=== PATIENT | male | born 1945 | race Caucasian/White ===

== ENCOUNTER 2017-08-14 06:29 | Day surgery (SDC) | payer MEDICARE ==
[~2017-08-14] VITALS: Ht 172.7 cm; Wt 90.5 kg
[2017-08-14] MEDS ORDERED: IOHEXOL 180 MG/ML 20 ML VIAL (for RAD DIAG) IT ONE (06:30)
[2017-08-14 06:56] VITALS: BP 128/76; PULSE 75; RESP 18; TEMP 97.9; O2SAT 96
[2017-08-14] MEDS ORDERED: DIAZEPAM 5 MG TAB PO SCH (07:30)
[2017-08-14] MEDS ORDERED: LACTATED RINGER'S 1000 ML INJ 1,000 ML IV SCH (07:30)
[2017-08-14 07:44] LABS: AUTOMATED NEUTROPHIL # 3.5 TH/MM3 (1.8-7.7); BASOPHIL # 0.1 TH/MM3 (0-0.2); BASOPHIL % 1.1 % (0.0-2.0); EOSINOPHIL # 0.3 TH/MM3 (0-0.4); EOSINOPHIL % 4.9 % (0.0-4.0); HEMATOCRIT 42.3 % (39.0-51.0); HEMOGLOBIN 14.1 GM/DL (13.0-17.0); LYMPH % 26.6 % (9.0-44.0); LYMPHOCYTE # 1.6 TH/MM3 (1.0-4.8); MEAN CELL VOLUME 99.3 FL (80.0-100.0); MEAN CORPUSCULAR HEMOGLOBIN 33.1 PG (27.0-34.0); MEAN CORPUSCULAR HGB CONC 33.3 % (32.0-36.0); MEAN PLATELET VOLUME 8.6 FL (7.0-11.0); MONO % 10.2 % (0.0-8.0); MONOCYTE # 0.6 TH/MM3 (0-0.9); NEUT % 57.2 % (16.0-70.0); PLATELET COUNT 216 TH/MM3 (150-450); RED BLOOD COUNT 4.26 MIL/MM3 (4.50-5.90); RED CELL DISTRIBUTION WIDTH 14.2 % (11.6-17.2)
[2017-08-14 07:58] LABS: PROTHROMBIN TIME - PATIENT 9.9 SEC (9.8-11.6)
[2017-08-14 07:59] LABS: BICARBONATE 23.6 MEQ/L (21.0-32.0); CREATININE 1.8 MG/DL (0.60-1.30)
--- NOTE | 2017-08-14 09:16 | PD.RAD ---
Post Procedure Progress Note Pre Procedure Diagnosis: (1) Neurogenic claudication Post Procedure Diagnosis: (1) Neurogenic claudication Procedure Date: Aug 14, 2017 Supervising Radiologist: Cristofer Odonnell Estimated blood loss: none Anesthesia: Local Plan of Activity Patient to Unit: [facility]OPU Patient Condition: Good Additional Comments: LP with myelogram completed. Full dictated report to follow See PACS Report for procedural detail/treatment Cristofer Odonnell MD Aug 14, 2017 09:16
[2017-08-14 10:05] VITALS: BP 116/73; PULSE 60; RESP 18; TEMP 97.8; O2SAT 96
--- NOTE | 2017-08-14 11:41 | RADRPT ---
EXAM DATE: 08/14/2017 10:03 AM EDT AGE/SEX: 71 years / Male INDICATIONS: Degenerative disc disease CLINICAL DATA: This is the patient's initial encounter. Patient reports that signs and symptoms have been present for 1 day and indicates a pain score of 3/10. MEDICAL/SURGICAL HISTORY: None. None. RADIATION DOSE: 41.65 CTDI (mGy) COMPARISON: No prior exams available for comparison. TECHNIQUE: Contiguous axial images were acquired with a multirow detector CT scanner without contras t. Multiplanar reconstructions in the sagittal and coronal plane were also performed. Using automate d exposure control and adjustment of the mA and/or kV according to patient size, radiation dose was k ept as low as reasonably achievable to obtain optimal diagnostic quality images. FINDINGS: Vertebrae: Normal vertebral body height. Alignment: A mild grade 1 anterolisthesis of L3 on L4.. T12-L1: The thecal sac has a normal diameter. No evidence of disc bulge or protrusion. The neural foramina are patent bilaterally. L1-L2: The thecal sac has a normal diameter. No evidence of disc bulge or protrusion. The neural f oramina are patent bilaterally. L2-L3: There is disc space narrowing and vacuum disc phenomena with anterior osteophyte production. There is limited contrast at this area limiting the evaluation somewhat. The central canal appears pa tent measuring 10 mm. Lateral recesses are patent. Neural foramina are patent. Moderate ligament flav um hypertrophy of the facets. L3-L4: There is disc space narrowing and vacuum disc phenomena. Limited contrast at this area limits the evaluation somewhat. There is a suspected left posterior lateral disc protrusion that effaces th e left lateral recess and narrows the left neural foramen. There is narrowing of the central canal in a medial to lateral dimension. Right lateral recess and right neural foramen appear patent. Prominen t ligament of flavum hypertrophy and bony hypertrophy of the facets bilaterally but more pronounced o n the left. L4-L5: Contrast opacifies the thecal space well at this level. At the mid L4 vertebral body level is where the contrast reaches with good opacification. Cephalad to this there is limited opacification. There is disc space narrowing and vacuum disc phenomena. A broad-based disc bulge in combination wit h prominent ligamentum flavum hypertrophy and bony hypertrophy of the facets causes effacement of the left lateral recess and narrowing of the right lateral recess. There is narrowing of the central can al with the intrathecal space measuring 6 mm in the midline. Mild narrowing of the neural foramina bi laterally without overt impingement.. L5-S1: Disc space narrowing and vacuum disc phenomena with broad-based disc osteophyte complex. Moder ate ligament flavum hypertrophy of the facets. There is narrowing of the lateral recesses bilaterally but more pronounced on the left. Central canal remains patent. Narrowing of the neural foramina with out overt impingement. CONCLUSION: 1. Diffuse multilevel degenerative changes most pronounced at L3-L4 and L4-L5. Contrast is limited a t L3-L4. There is felt to be a left posterior lateral disc protrusion that effaces the left lateral r ecess and narrows the central canal and left neural foramen. At L4-L5 1 combination of a broad-based disc bulge and facet arthropathy changes causes less pronounced narrowing of the central canal. Electronically signed by: Adan Tsai MD 08/14/2017 11:39 AM EDT
--- NOTE | 2017-08-14 16:07 | RADRPT ---
EXAM DATE: 08/14/2017 9:38 AM EDT AGE/SEX: 71 years / Male INDICATIONS: Patient presents with lower back pain in need of lumbar myelogram for evaluation. CLINICAL DATA: This is the patient's initial encounter. Patient reports that signs and symptoms have been present for > 1 year and indicates a pain score of 0/10. MEDICAL/SURGICAL HISTORY: Hypertension. Osteoarthritis. Anxiety. Pacemaker. COMPARISON: [facility] – [place], CT LUMBAR SPINE W/O CONTRAST, 08/14/2017. . FLUORO TIME (min): 2.3 IMAGE SERIES: 6 ACCESS SITE: L4-5 LUMBAR PUNCTURE TIME: 0904 hours CONTRAST (cc): 15cc Omnipaque (iohexol) 180 . . PROCEDURE: 1. Fluoroscopic guided lumbar puncture. 2. Lumbar myelogram. The risks, benefits and alternatives to the procedure were explained and verbal and written consent w as obtained. The site was prepped in sterile fashion. Full sterile technique was used, including ca p, mask, sterile gloves and gown and a large sterile sheet. Hand hygiene and 2% chlorhexidine and/or betadine/alcohol prep was utilized per protocol for cutaneous antisepsis. The skin and subcutaneous tissues were infiltrated with local anesthetic solution. With fluoroscopic guidance the lumbar thecal sac was punctured at level above and a diagnostic quanti ty of contrast is present in the subarachnoid space. Radiographs were obtained of the lumbar spine. The patient tolerated procedure well and there were no complications. CT scan is to be performed for further evaluation. CONCLUSION: 1. Uncomplicated lumbar myelogram as above. CT scan is to be performed for further evaluation. Electronically signed by: Cristofer Odonnell MD 08/14/2017 3:50 PM EDT
== END 2017-08-14 13:20 | disposition home or self-care (01) ==
LOC: HROP 06:29 → HRIP 06:37 → EDSEX 07:00 → HROP 13:20
PROVIDERS: ATTEND Neurological Surgery
DX: M51.26 Other intervertebral disc displacement, lumbar region (principal); I10 Essential (primary) hypertension; Z95.0 Presence of cardiac pacemaker
CPT/HCPCS: 62304; 72131; 80048; 85025; 85610; 85730; J7120; Q9965

== ENCOUNTER 2017-09-11 08:30 | Inpatient (IN) ==
[~2017-09-11 08:30] MED LIST: Bupivacaine/Epinephrine 0.5% Inj 50 ML Vial ONE; CEFAZOLIN IV.SIG ONE; Gelatin Size 100 Topical Foam ONE; Heparin - SQ 10,000 UNITS/ML Vial SQ ONE
[2017-09-11] MEDS ORDERED: Normosol-R pH 7.4 Inj 3,000 ML IV.CONT ONE (12:00)
[2017-09-11] MEDS ORDERED: Sodium Chlor 0.9% Inj 500 ML IV.SIG ONE (12:00)
[2017-09-11] MEDS ORDERED: Glycopyrrolate Inj 1 MG/5 ML Syringe IV.PUSH ONE (12:00)
[2017-09-11] MEDS ORDERED: Phenylephrine/NS 1000 MCG/10ML Syringe IV.PUSH ONE (12:00)
[2017-09-11] MEDS ORDERED: Lidocaine PF 1% Inj 5 ML Syringe INFILTRATN ONE (12:00)
[2017-09-11] MEDS ORDERED: Chlorhexidine Gluconate 2% 1 Pack (2 Cloths) TOPICAL SCH (14:00)
[2017-09-11] MEDS ORDERED: Sodium Chlor 0.9% Inj 500 ML IV.SIG SCH (14:00)
[2017-09-11] MEDS ORDERED: Metoprolol Tartrate 25 MG Tablet PO SCH (14:00)
[2017-09-11] MEDS ORDERED: ceFAZolin 2 GM IV; once IV.SIG SCH (14:00)
[2017-09-11] MEDS ORDERED: Ketamine Inj 50 MG/5 ML Syringe IV.PUSH ONE (14:57)
[2017-09-11] MEDS ORDERED: Propofol Inj 500 MG/50 ML Vial ONE (14:57)
[2017-09-11] MEDS ORDERED: Dexmedetomidine Inj 200 MCG/2 ML Vial ONE (14:57)
[2017-09-11] MEDS ORDERED: Bisacodyl 10 MG Supp RECTAL PRN (16:01)
[2017-09-11] MEDS ORDERED: Acetaminophen 325 MG Tablet PO PRN (16:01)
[2017-09-11] MEDS ORDERED: HYDROmorphone PCA Inj 6 MG/30 ML PCA.VIAL PCA PRN (16:05)
[2017-09-11] MEDS ORDERED: Naloxone Inj 0.4 MG/ML Vial IV.PUSH PRN (16:05)
[2017-09-11] MEDS ORDERED: Sugammadex Inj 200 MG/2 ML Vial IV.PUSH ONE (16:27)
[2017-09-11] MEDS ORDERED: fentaNYL Citrate Inj 100 MCG/2 ML Ampul ONE (18:38)
[2017-09-12] MEDS ORDERED: Phenylephrine Inj 40 MG in Dextrose 5% in Water Inj 496 ML IV.CONT PRN ×2 (00:50)
[2017-09-12 01:18] LABS: Baso % (Auto) 0.1 % (0.0-2.0); Eos % (Auto) 0.1 % (0.0-4.0); Hematocrit 30.9 % (39.0-51.0); Hemoglobin 10.2 gm/dL (13.0-17.0); Lymph # (Auto) 0.7 th/mm3 (1.0-4.8); Lymph % (Auto) 4.3 % (9.0-44.0); Mean Corpuscular HGB Conc 32.9 % (32.0-36.0); Mean Corpuscular Volume 100.3 fL (80.0-100.0); Mean Platelet Volume 8.4 fL (7.0-11.0); Mono # (Auto) 1.1 th/mm3 (0.0-0.9); Mono % (Auto) 6.7 % (0.0-8.0); Neut # (Auto) 14.1 th/mm3 (1.8-7.7); Neut % (Auto) 88.8 % (16.0-70.0); Platelet Count 150 th/mm3 (150-450); Red Blood Count 3.08 mil/mm3 (4.50-5.90); Red Cell Distribution Width 13.6 % (11.6-17.2); White Blood Count 15.9 th/mm3 (4.0-11.0)
[2017-09-12] MEDS ORDERED: *morphine SULFATE 4 MG/ML PERIprocedure ONLY ONE (01:25)
[2017-09-12] MEDS ORDERED: *Meperidine Inj 25 MG/ML Vial PERIprocedural Use ONLY ONE (01:30)
[2017-09-12 01:38] LABS: Calcium 7.3 mg/dL (8.5-10.1); Carbon Dioxide 17.4 meq/L (21.0-32.0); Potassium 4.5 meq/L (3.5-5.1)
[2017-09-12] MEDS: Sod Chloride 0.9% Inj 1,000 ML IV.CONT SCH ×4 (02:28→17:29)
[2017-09-12] MEDS: ceFAZolin 2 GM Premix Inj 2 GM/50 ML PIGGYBACK IV.SIG SCH ×3 (02:29→09:00)
[2017-09-12] MEDS ORDERED: Albumin Human 5% Inj 500 ML IV.SIG STA (02:34)
[2017-09-12] MEDS ORDERED: Calcium Gluconate Inj 3 GM in Sodium Chlor 0.9% Inj 100 ML IV.SIG ONE (02:47)
[2017-09-12 02:51] LABS: ABG Base Excess -10.3 mmol/L (-2-2); ABG PCO2 32 mmHg (38-42); ABG PO2 134 mmHg (61-120)
--- NOTE | 2017-09-12 02:58 | P.CONCC ---
History of Present Illness Service: Critical care medicine Consult date: 09/12/17 Requesting Physician: Abilio Ortega Reason for Consult: management of hypotension Primary Care Provider: Dayton Alamo MD Family Provider: Dayton Alamo MD Chief Complaint: hypotension History of Present Illness: 71yM POD 0 s/p elective lumbar spine surgery by Dr. Ortega. intra-operatively it was recorded that the patient had an EBL of 300mL, but received 750mL of cell- saver. post-operatively patient was hypotensive requiring phenylephrine infusion. critical care consult was placed due to hypotension. on my evaluation , patient is somnolent and still arousing from anesthesia. patient is on 200 mcg /min of phenylephrine and has map of 61 mmHg. patient's extremities are cool and poorly perfused. stat abg 7.29/31/134/-10.3. hgb 10.9. appears globally hypovolemic. stat lactate pending. ROS otherwise negative but limited by arousal from anesthesia. Review of Systems All other systems reviewed negative except as stated in HPI, unobtainable due to mental status PMFSH - History History Provided By: Patient, Medical Record - Medical History Medical History: Medical History (Last Reviewed 09/11/17 @ 14:19 by Ashley Ledesma) DDD (degenerative disc disease) GERD (gastroesophageal reflux disease) Gout H/O meningitis High cholesterol Hypertension Pacemaker Rheumatoid arthritis Thigh contusion Wears glasses - Surgical History Surgical History: Surgical History (Last Reviewed 09/11/17 @ 14:19 by Ashley Ledesma) History of arthroplasty of left knee History of tonsillectomy and adenoidectomy - Tobacco History Second Hand Smoke Exposure: No Tobacco Use In Past 30 Days: No Smoking Status: Former smoker Tobacco Type: Cigarettes - Alcohol History How Often Do You Have a Drink Containing Alcohol: Never - Substance Use History Substance History: No History of Abuse - Travel History Recent Travel in the [place] Within the Last 8 Weeks: No Recent Travel Out of the Country Within the Last 8 Weeks: No Medications and Allergies Active Medications: Active Medications Acetaminophen (Tylenol) 650 mg PO Q4H PRN PRN Reason: TEMPERATURE > 101.5 F Al Hydroxide/Mg Hydroxide (Milk Of Magnesia Liq) 30 ml PO Q12H PRN PRN Reason: Mild Constipation Allopurinol (Zyloprim) 300 mg PO DAILY [facility] Atorvastatin Calcium (Lipitor) 20 mg PO DAILY [facility] Bisacodyl (Dulcolax Supp) 10 mg RECTAL DAILY PRN PRN Reason: SEVERE CONSITIPATION Chlorhexidine Gluconate (Chlorhexidine 2% Cloth) 3 pack TOPICAL HAND TENNIS [employer]ALL [employer] [facility] Stop: 09/14/17 13:54 Famotidine (Pepcid) 20 mg PO BID [facility] Lactated Ringer's (Lr 1000 Ml Inj) 1,000 mls @ 30 mls/hr IV.SIG .Q24H [facility] Stop: 09/14/17 13:54 Sodium Chloride (Ns Inj) 500 mls @ 30 mls/hr IV.SIG .Q10H [facility] Stop: 09/14/17 13:54 Cefazolin Sodium/Dextrose (Ancef 2 Gm Premix Inj) 2 gm in 50 mls @ 100 mls/hr IV.SIG Q8H [facility] Stop: 09/12/17 09:29 Last Admin: 09/12/17 02:29 Dose: Not Given Sodium Chloride (Ns Inj) 1,000 mls @ 100 mls/hr IV.CONT .Q10H [facility] Last Admin: 09/12/17 02:28 Dose: 100 mls/hr Hydromorphone/Sodium Chloride (Dilaudid Equine Intern Inj) 6 mg in 30 mls @ 0 mls/hr [employer] UNSCH PRN PRN Reason: 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 Phenylephrine HCl 40 mg/ (Dextrose) 500 mls @ 30 mls/hr IV.CONT TITRATE PRN; Protocol PRN Reason: Per Protocol Albumin Human (Alburx 5% Inj) 500 mls @ 250 mls/hr IV.SIG STAT STA Stop: 09/12/17 04:33 Lactated Ringer's (Lr 1000 Ml Inj) 1,000 mls @ 0 mls/hr IV.SIG BOLUS ONE Stop: 09/12/17 02:48 Calcium Gluconate 3 gm/ Sodium (Chloride) 130 mls @ 120 mls/hr IV.SIG ONCE ONE Stop: 09/12/17 03:51 Lactulose (Lactulose Liq) 30 ml PO DAILY PRN PRN Reason: SEVERE CONSITIPATION Miscellaneous Information (Misc Nursing Information) 1 each OTHER UNSCH PRN PRN Reason: SEE LABEL COMMENTS Stop: 09/13/17 01:33 Multivitamins (Theragran) 1 tab PO DAILY [facility] Naloxone HCl (Narcan Inj) 0.4 mg IV.PUSH PRN PRN PRN Reason: SEE LABEL COMMENTS Povidone Iodine (Betadine 5% Antisepsis Kit) 1 applicatio EACH NARE HAND [employer] [facility] Stop: 09/14/17 13:54 Senna/Docusate Sodium (Radha-Colace) 1 tab PO BID [facility] Sennosides (Senokot) 17.2 mg PO Q12H PRN PRN Reason: Moderate Constipation Sertraline HCl (Zoloft) 50 mg PO [facility] Terbutaline Sulfate (Brethine Inj) 1 mg SQ UNSCH PRN PRN Reason: For Extravasation Allergies Allergy/AdvReac Type Severity Reaction Status Date / Time No Known Allergies Allergy Unverified 09/11/17 14:20 Home Medications Medication Instructions Recorded Confirmed Type allopurinol 300 mg PO DAILY 09/03/17 09/11/17 History aspirin [Aspir-81] 81 mg PO DAILY 09/03/17 09/11/17 History enalapril maleate [Vasotec] 10 mg PO DAILY 09/03/17 09/11/17 History ibuprofen 800 mg PO TID PRN 09/03/17 09/11/17 History multivitamin 1 tab PO DAILY 09/03/17 09/11/17 History ranitidine HCl [Zantac] 150 mg PO DAILY 09/03/17 09/11/17 History rosuvastatin [Crestor] 10 mg PO DAILY 09/03/17 09/11/17 History sertraline [Zoloft] 50 mg PO HS 09/03/17 09/11/17 History triamterene-hydrochlorothiazid 1 tab PO DAILY 09/03/17 09/11/17 History Physical Exam Vital signs: Vital Signs 09/11/17 14:24 09/12/17 00:29 09/12/17 00:30 Temperature 36.8 C 36.3 C L Pulse Rate 76 74 Respiratory Rate 16 12 Blood Pressure 145/69 H 92/54 L Pulse Oximetry 97 100 96 09/12/17 00:40 09/12/17 00:45 09/12/17 01:00 Temperature 36.3 C L 36.3 C L Pulse Rate 74 74 64 Respiratory Rate 12 12 Blood Pressure 92/54 L 75/41 L 116/51 L Pulse Oximetry 100 100 09/12/17 01:15 09/12/17 01:30 09/12/17 01:40 Temperature 36.3 C L 36.3 C L 36.5 C Pulse Rate 63 62 60 Respiratory Rate 12 12 12 Blood Pressure 117/57 L 142/57 H 94/45 L Pulse Oximetry 100 100 100 Intake & Output 09/11/17 09/11/17 09/12/17 06:59 18:59 06:59 Output Total 800 / 800 Balance -800 / -800 Weight 91.8 kg Output: Estimated Blood Loss 300 / 300 Urine Amount (Catheter) 500 / 500 Indwelling Urethral Catheter 500 / 500 Other: Weight On Admission 91.8 kg Narrative: gen: elderly male, lying in bed, arousing from anesthesia, somnolent but arousable. does appear acutely ill. heent: perrl. sclerae very pale. neck: no jvd. trachea midline. chest: equal chest rise. nc o2. cv: normal rate, regular rhythm. appears sinus by tele. hypotensive. phenylephrine infusion at 200mcg/min. abd: soft, nontender, nondistended, no guarding. back: midline lumbar incision c/d/i. CHARLENE with ~30mL sanguinous output. neuro: RASS -1/-2. moves all extremities. follows commands. no focal deficits. - Urinary Catheter Management Indwelling Urethral Catheter Cath placed during this visit: yes Reason for continuing: Hourly intake/output Insertion date: 09/11/17 Insertion time: 16:03 Assessment and Plan - Assessment and Plan Plan: Assessment: 71yM POD 0 s/p spine surgery, course complicated by hypovolemic shock requiring vasopressors. Critically ill with end-organ damage/dysfunction secondary to new shock. appears globally under-resuscitated. Active Problems: Hypovolemic Shock anemia secondary to acute blood loss severe metabolic acidosis Hypocalcemia Acute kidney injury Plan: - admit to ICU - continue to wean phenylephrine for goal map > 65 mmHg - stat 1L LR bolus, 500cc 5% albumin bolus - mivf @ 100cc/hr - trend H&H - send stat coags, fibrinogen, lactate - may require blood tranfusion - close uop monitoring - frequent neuro checks - daily bmp and monitor Cr. - RODERICK secondary to hypovolemia. Critical care time: 49 minutes, exclusive of separately billable procedures.
[2017-09-12 03:07] LABS: Total Protein 4.3 g/dL (6.4-8.2)
[2017-09-12] MEDS ORDERED: Calcium Chloride Inj 2 GM in Sodium Chlor 0.9% Inj 100 ML IV.SIG ONE (03:45)
[2017-09-12 04:13] LABS: ABG Base Excess -8.3 mmol/L (-2-2); ABG PCO2 39 mmHg (38-42); ABG PO2 130 mmHg (61-120)
[2017-09-12 04:34] LABS: Activated Partial Thrombo Time 22.3 sec (24.3-30.1); INR 1.2 Ratio; Prothrombin Time 11.7 sec (9.8-11.6)
[2017-09-12 04:57] LABS: Hematocrit 25.9 % (39.0-51.0); Hemoglobin 8.6 gm/dL (13.0-17.0)
[2017-09-12] MEDS: Allopurinol 300 MG Tablet PO SCH (09:01)
[2017-09-12] MEDS: Senna/Docusate Sodium 8.6/50 MG Tablet PO SCH ×3 (09:09→21:10)
[2017-09-12] MEDS: Famotidine 20 MG Tablet PO SCH ×2 (09:11→21:10)
--- NOTE | 2017-09-12 09:12 | XR ---
EXAM DATE: 09/12/2017 9:02 AM EDT AGE/SEX: 71 years / Male INDICATIONS: Lumbar fusion, L3-4, 4-5, L5-S1. CLINICAL DATA: This is the patient's initial encounter. Patient reports that signs and symptoms have been present for 1 day and indicates a pain score of Nonresponsive. MEDICAL/SURGICAL HISTORY: Non-responsive. Non-responsive. COMPARISON: [facility] [place]ELO[place] - LUMBAR SPINE, 08/14/2017. . FINDINGS: Transpedicular screws are seen at the L3, L4, L5 and S1 levels with stabilization plate devices seen at the disc levels. There does appear to be a posterior drain present. The hardware is well placed. CONCLUSION: Good placement of surgical hardware from the L3-S1 levels. Electronically signed by: Albert Leong MD 09/12/2017 9:11 AM EDT
[2017-09-12] MEDS: Sertraline 50 MG Tablet PO SCH ×2 (12:42→21:10)
[2017-09-13] MEDS: Sod Chloride 0.9% Inj 1,000 ML IV.CONT SCH ×4 (00:10→22:13)
[2017-09-13 07:38] LABS: Calcium 8.2 mg/dL (8.5-10.1); Potassium 3.4 meq/L (3.5-5.1)
--- NOTE | 2017-09-13 10:13 | P.PNCC ---
Subjective Subjective Remarks/Hospital Course: 71yM POD 0 s/p elective lumbar spine surgery by Dr. Oretga. intra-operatively it was recorded that the patient had an EBL of 300mL, but received 750mL of cell- saver. post-operatively patient was hypotensive requiring phenylephrine infusion. critical care consult was placed due to hypotension. on my evaluation , patient is somnolent and still arousing from anesthesia. patient is on 200 mcg /min of phenylephrine and has map of 61 mmHg. patient's extremities are cool and poorly perfused. stat abg 7.29/31/134/-10.3. hgb 10.9. appears globally hypovolemic. stat lactate pending. ROS otherwise negative but limited by arousal from anesthesia. 09/13: Lactic acidosis is resolved, renal function improving. A major issue appears to be his idiosyncratic reactions to analgesics. He wiggles his toes and follows commands. Objective Vital Signs / I&O: Vital Signs 09/12/17 12:00 09/12/17 12:43 09/12/17 16:00 Temperature 98.6 F 98.1 F Pulse Rate 72 72 Respiratory Rate 23 21 Blood Pressure 104/57 L 104/57 L Pulse Oximetry 100 96 09/12/17 19:05 09/12/17 20:00 09/13/17 00:00 Temperature 98.0 F 98.3 F Pulse Rate 74 77 Respiratory Rate 20 27 H 27 H Blood Pressure 139/65 140/51 L Pulse Oximetry 97 94 L 09/13/17 00:21 09/13/17 04:00 Temperature 99 F Pulse Rate 80 Respiratory Rate 20 21 Blood Pressure 137/46 L Pulse Oximetry 94 L Intake & Output 09/12/17 09/13/17 09/13/17 18:59 06:59 18:59 Intake Total 6170 / 6170 1750 / 1750 Output Total 910 / 910 1695 / 1695 Balance 5260 / 5260 55 / 55 Weight 99.2 kg Intake: IV 1000 / 1000 1000 / 1000 NS Inj 1,000 ML @ 100 mls/hr IV 1000 / 1000 1000 / 1000 .CONT .Q10H [facility] Rx#:[id number] Oral 420 / 420 0 / 0 Water Bolus Amount 500 / 500 Anesthesia Amount 4500 / 4500 Intake (Blood Product) Amt 0 / 0 Rbc As-3 Leukoreduced Unit 0 / 0 [id number] Autotransfusion Amount 250 / 250 250 / 250 Output: Estimated Blood Loss 400 / 400 Urine Amount (Catheter) 850 / 850 1200 / 1200 Indwelling Urethral Catheter 850 / 850 1200 / 1200 Wound Drainage 60 / 60 95 / 95 Back 60 / 60 95 / 95 Result Diagrams: 09/12/17 04:05 09/13/17 06:00 Objective Remarks: PE: gen: elderly male, lying in bed, alert, conversant. heent: perrl. neck: no jvd. trachea midline. Airway widely patent, no obstructive noises chest: equal chest rise. nc o2. Lungs clear, no adventitious sounds cv: normal rate, regular rhythm. No JVD. abd: soft, nontender, nondistended, no guarding. Bowel sounds active. back: midline lumbar incision c/d/i. CHARLENE in place. neuro: RASS 1. moves all extremities. follows commands. no focal deficits. Assessment and Plan - Assessment and Plan Plan: Assessment: 71yM POD 2, s/p spine surgery. Active Problems: Hypovolemic Shock -resolved anemia secondary to acute blood loss severe metabolic acidosis -resolved Hypocalcemia Acute kidney injury -improved Plan: -Incentive spirometry - continue to wean phenylephrine for goal map > 65 mmHg -done -Oral diet - mivf @ 100cc/hr, taper off - trend H&H -Follow renal function tests - may require blood tranfusion - close uop monitoring - frequent neuro checks -PT OT per neurosurgery service Overall impression: Good progress following his lower back surgery. Only a problem appears to be his adverse reaction to oral analgesics.
[2017-09-13] MEDS: Senna/Docusate Sodium 8.6/50 MG Tablet PO SCH ×2 (10:29→20:46)
[2017-09-13] MEDS: Allopurinol 300 MG Tablet PO SCH (10:29)
[2017-09-13] MEDS: Famotidine 20 MG Tablet PO SCH ×2 (10:30→20:46)
--- NOTE | 2017-09-13 16:48 | P.PNNS ---
Subjective Interval history: POD 2: s/p L3-4, L4-5, L5-S1 laminectomy, interbody arthrodhesis using PEEK cage and autologous bone graft, L3-4, L4-5, L5-S1 segmental instrumental fixation using transpedicular screws and rods, L3-4, L4-5, L5-S1 posterolateral fusion using autologous bone graft and rods. Microsurgical dissection confused from pain medications. quite painful today worse with movement. Physical Exam Vital signs: Vital Signs 09/12/17 19:05 09/12/17 20:00 09/13/17 00:00 Temperature 98.0 F 98.3 F Pulse Rate 74 77 Respiratory Rate 20 27 H 27 H Blood Pressure 139/65 140/51 L Pulse Oximetry 97 94 L 09/13/17 00:21 09/13/17 04:00 Temperature 99 F Pulse Rate 80 Respiratory Rate 20 21 Blood Pressure 137/46 L Pulse Oximetry 94 L Intake & Output 09/12/17 09/13/17 09/13/17 18:59 06:59 18:59 Intake Total 6170 / 6170 1750 / 1750 2099 / 2099 Output Total 910 / 910 1695 / 1695 Balance 5260 / 5260 55 / 55 2099 / 2099 Weight 99.2 kg Intake: IV 1000 / 1000 1000 / 1000 2100 / 2100 NS Inj 1,000 ML @ 100 mls/hr IV 1000 / 1000 1000 / 1000 2000 / 2000 .CONT .Q10H [facility] Rx#:[id number] Ofirmev Inj 1,000 mg In 100 ml 100 / 100 @ 400 mls/hr IV.SIG Q6H [facility] Rx# :[id number] Oral 420 / 420 0 / 0 Water Bolus Amount 500 / 500 Anesthesia Amount 4500 / 4500 Intake (Blood Product) Amt 0 / 0 Rbc As-3 Leukoreduced Unit 0 / 0 [id number] Autotransfusion Amount 250 / 250 250 / 250 Output: Estimated Blood Loss 400 / 400 Urine Amount (Catheter) 850 / 850 1200 / 1200 Indwelling Urethral Catheter 850 / 850 1200 / 1200 Wound Drainage 60 / 60 95 / 95 Back 60 / 60 95 / 95 Narrative: GENERAL: Awake, mildly confused SKIN: Warm and dry. HEAD: Normocephalic. EYES: No scleral icterus. No injection or drainage. NECK: Supple, CARDIOVASCULAR: Regular rate and rhythm RESPIRATORY: Breath sounds equal bilaterally. No accessory muscle use. GASTROINTESTINAL: Abdomen soft, non-tender, nondistended. MUSCULOSKELETAL: No cyanosis, or edema. moves all four extremities - Urinary Catheter Management Indwelling Urethral Catheter Cath placed during this visit: yes Reason for continuing: Hourly intake/output Insertion date: 09/11/17 Insertion time: 16:03 Assessment and Plan - Plan dc opiods due to confusion IV Tylenol prn pain, tramadol for breakthrough pain PT, mobilize with TLSO case mgt dc planning to rehab tomorrow appreciate critical care management cont IS every hour Dr. Ortega dw bedside
[2017-09-13] MEDS: Sertraline 50 MG Tablet PO SCH (20:46)
[2017-09-13] MEDS: Melatonin 5 MG Tablet PO PRN (20:46)
[2017-09-14 05:46] LABS: Calcium 8.2 mg/dL (8.5-10.1); Carbon Dioxide 23.7 meq/L (21.0-32.0)
[2017-09-14 06:22] LABS: Potassium 2.6 meq/L (3.5-5.1)
[2017-09-14] MEDS: Sod Chloride 0.9% Inj 1,000 ML IV.CONT SCH ×2 (07:03→12:43)
[2017-09-14] MEDS: Allopurinol 300 MG Tablet PO SCH (09:58)
[2017-09-14] MEDS: Senna/Docusate Sodium 8.6/50 MG Tablet PO SCH ×2 (09:58→20:10)
[2017-09-14] MEDS: Famotidine 20 MG Tablet PO SCH ×2 (09:58→20:10)
[2017-09-14] MEDS ORDERED: Potassium Phosphate 500 MG Soluble Tablet PO PRN ×2 (10:00)
[2017-09-14] MEDS ORDERED: Potassium Phosphate Inj 30 MMOL in Sodium Chlor 0.9% Inj 250 ML IV.SIG PRN (10:00)
[2017-09-14] MEDS ORDERED: Potassium Chloride 25 MEQ Effervescent Tablet PO PRN (10:00)
[2017-09-14] MEDS ORDERED: Magnesium Sulfate Inj 4 GM in Sodium Chlor 0.9% Inj 92 ML IV.SIG PRN (10:00)
[2017-09-14] MEDS ORDERED: Magnesium Oxide 400 MG Tablet PO PRN (10:00)
[2017-09-14] MEDS ORDERED: Potassium Chlor 40 mEq Premix 40 MEQ/100 ML PIGGYBACK IV.SIG PRN ×2 (10:00)
[2017-09-14] MEDS ORDERED: Potassium Chlor 20 mEq Premix 20 MEQ/100 ML PIGGYBACK IV.SIG PRN (10:00)
[2017-09-14] MEDS ORDERED: Magnesium Sulfate Inj 2 GM in Sodium Chlor 0.9% Inj 96 ML IV.SIG PRN (10:00)
[2017-09-14] MEDS ORDERED: Sodium Phosphate Inj 30 MMOL in Sodium Chlor 0.9% Inj 250 ML IV.SIG PRN (10:00)
--- NOTE | 2017-09-14 10:08 | P.PNCC ---
Subjective Subjective Remarks/Hospital Course: 71yM POD 0 s/p elective lumbar spine surgery by Dr. Ortega. intra-operatively it was recorded that the patient had an EBL of 300mL, but received 750mL of cell- saver. post-operatively patient was hypotensive requiring phenylephrine infusion. critical care consult was placed due to hypotension. on my evaluation , patient is somnolent and still arousing from anesthesia. patient is on 200 mcg /min of phenylephrine and has map of 61 mmHg. patient's extremities are cool and poorly perfused. stat abg 7.29/31/134/-10.3. hgb 10.9. appears globally hypovolemic. stat lactate pending. ROS otherwise negative but limited by arousal from anesthesia. 09/13: Lactic acidosis is resolved, renal function improving. A major issue appears to be his idiosyncratic reactions to analgesics. He wiggles his toes and follows commands. 09/14: He is much more well oriented today. Potassium is low and we will replace. Objective Vital Signs / I&O: Vital Signs 09/13/17 12:00 09/13/17 16:00 09/13/17 20:00 Temperature 98 F 98.6 F 98.1 F Pulse Rate 76 80 82 Respiratory Rate 16 20 22 Blood Pressure 146/65 H 113/69 139/65 Pulse Oximetry 94 L 93 L 09/14/17 00:00 09/14/17 04:00 09/14/17 08:00 Temperature 98.6 F 98 F 98.0 F Pulse Rate 80 72 68 Respiratory Rate 24 19 23 Blood Pressure 134/61 122/59 L 129/59 L Pulse Oximetry 93 L 94 L 94 L Intake & Output 09/13/17 09/14/17 09/14/17 18:59 06:59 18:59 Intake Total 2200 / 2200 1220 / 1220 1000 / 1000 Output Total 1400 / 1400 1780 / 1780 Balance 800 / 800 -560 / -560 1000 / 1000 Weight 96.7 kg Intake: IV 2100 / 2100 1100 / 1100 1000 / 1000 NS Inj 1,000 ML @ 100 mls/hr IV 2000 / 2000 1000 / 1000 1000 / 1000 .CONT .Q10H [facility] Rx#:[id number] Ofirmev Inj 1,000 mg In 100 ml 100 / 100 100 / 100 @ 400 mls/hr IV.SIG STAT ONE Rx #:[id number] Oral 100 / 100 120 / 120 Output: Estimated Blood Loss 400 / 400 Urine Amount (Catheter) 1400 / 1400 1350 / 1350 Indwelling Urethral Catheter 1400 / 1400 1350 / 1350 Wound Drainage Back Other: Date of Last Bowel Movement 09/11/17 09/11/17 Result Diagrams: 09/12/17 04:05 09/14/17 04:22 Objective Remarks: PE: gen: elderly male, lying in bed, alert, conversant. heent: perrl. neck: no jvd. trachea midline. Airway widely patent, no obstructive noises chest: equal chest rise. nc o2. Lungs clear, no adventitious sounds cv: normal rate, regular rhythm. No JVD. abd: soft, nontender, nondistended, no guarding. Bowel sounds active. back: midline lumbar incision c/d/i. CHARLENE in place. neuro: RASS 1. moves all extremities. follows commands. no focal deficits. not confused this morning. Assessment and Plan - Assessment and Plan Plan: Assessment: 71yM POD 2, s/p spine surgery. Active Problems: Hypovolemic Shock -resolved anemia secondary to acute blood loss severe metabolic acidosis -resolved Hypocalcemia Acute kidney injury -improved Plan: -Incentive spirometry - continue to wean phenylephrine for goal map > 65 mmHg -done -Oral diet - mivf @ 100cc/hr, taper off - trend H&H -Follow renal function tests - close uop monitoring - frequent neuro checks -PT OT per neurosurgery service -Electrolyte replacement protocol Overall impression: Good progress following his lower back surgery. The problem with confusion after analgesic appears to have resolved.
[2017-09-14] MEDS: Potassium Chlor 20 mEq Premix 20 MEQ/100 ML PIGGYBACK IV.SIG PRN ×3 (10:45→16:57)
--- NOTE | 2017-09-14 15:25 | P.OP ---
- Preoperative Diagnosis (1) Lumbar degenerative disc disease - Postoperative Diagnosis (1) Lumbar degenerative disc disease Date of procedure: 09/11/17 Procedure: L3-4, L4-5, L5-S1 laminectomy, interbody arthrodhesis using PEEK cage and autologous bone graft, L3-4, L4-5, L5-S1 segmental instrumental fixation using transpedicular screws and rods, L3-4, L4-5, L5-S1 posterolateral fusion using autologous bone graft and rods. Microsurgical dissection Anesthesia: MARTÍNEZA Surgeon: Abilio Ortega MD Sales Operations Associate: Taj beck Tourniquet time (min): 300 Pathology: none sent Operation and Findings: INDICATIONS FOR THE SURGICAL PROCEDURE Mr garzon is a 71 year-old male who presented with intractable mechanical back pain and urban evidence of lower extremity poliradiculopathy, with L4, L5 and S1 chronic radiculopathy. He failed maximum nonsurgical management including multiple modalities of conservative treatment as well as pain management interventions by an interventional pain specialist. A surgical decompression and arthrodhesis were indicated as a last resort. The [id number] details of the procedure, indications, alternatives, risks and potential complications were fully discussed with the patient. The patient fully understood. All the questions were answered. No guarantees were given. The patient voiced requesting the procedure and provided informed consents. The patient was offered the alternative of delaying the procedure and continuing with nonsurgical management. DETAILS OF THE SURGICAL PROCEDURE Prior to the procedure, the surgical incision was marked in the preoperative surgical holding room, and the procedure, risks, and potential complications revisited with the patient. Placement of electrodes for intraoperative neurophysiological monitoring was completed. The patient was taken to the operative room, and following induction of general anesthesia, endotracheal intubation was performed. A Samano catheter, bilateral VIKI hose and sequential compression devices were placed and kept throughout the procedure. The patient was positioned prone, over a Hieu table over a Manoj frame. All pressure in the preoperative surgical holding room points were carefully padded with eggcrate and gel mattress. The eyes were tapped shut after ointment was applied by the anesthesiologist to prevent corneal abrasion. A Karl hugger was placed over the expossed lower body to maintain control of the core body temperature. The electrophysiological team placed the needles and electrodes in their proper location and baseline SSEP's and motor evoked potentials were registered prior and following the positioning. The entrance to each pedicles was marked using a C arm. The lumbar region was prepped and draped in the usual sterile fashion. The surgical procedure was performed in several steps as follow: SURGICAL APPROACH Once the patient was positioned, a localizing cross-table lateral x-ray was performed with a C-arm. Two paramedian small incisions were outlined on the skin approximately 3cm from the midline. The skin incisions were made with a # 10 blade. Small bleeders were controlled with the cautery. The dissection was then carried out into deper planes and through the thoracolumbar fascia with a Bovie. The intermuscular septum was identified and the myscles were blunted dissected along the septum. The facets and transverse process of L3, L4, L5 and S1 were exposed and the proper anatomical landmarks were identidied. A microsurgical self-retaining retractor was placed on the incision, and a localizing lateralizing cross-table x-ray was performed with an instrument underneath a lamina of the lumbar spine. INSTRUMENTAL FIXATION At this point in the procedure, placement of bilateral transpedicular screws was necessary for stabilization of the spine. Initially, the entry point for the screw was selected anatomically at the junction of the facet, with the transverse process, and the pars interarticularis at L4, L5 and at the sacrum. This was started with a Giamshetti needle, followed by the use of an cade wire, and then a tap was used to create the threads for the screws. Finally bilateral transpedicular screws were carefully placed bilaterally at L3, L4, L5, and S1 under fluoroscopic visualization. An appropriate purchase was achieved with all screws. The position of each screw was assessed anatomically with an AP, lateral , oblique Xrays. An intraoperative scan view of the spine was then performed using the iso-centric c-arm. Each screw was then assessed electrophysiologically with a nerve stimulator. SURGICAL DECOMPRESSION There was significant mass effect with compression of the neural structures. In order to relieve neural compression, it was necessary to perform a decompressive laminectomy, with decompression of the spinal canal and bilateral lateral recesses. Note that the scope of such decompression was significantly more extensive than the minimal exposure necessary to perform an interbody fusion, as there was extreme facet arthropathy with near complete collapse of the disk spaces and severe stenosis cause by the hyperthrophic joint facets. At this point of the procedure the operative microscope was draped in the usual sterile fashion and brought to the field. The rest of the surgical procedure was performed using microdissection technique with the exception of the closure. Under the operating microscope, a decompressive laminectomy was carried out at L5-S1 as follow: The laminae, base of the spinous processes and facets were carefully drilled exposing the ligamentum flavum. The facets were abnormal with severe facet arthropathy, vacuum facets, and mass effect over the neural structures. A broad disk protusion was contributing to compression of the neural structures and exiting L4, L5, and S1 nerve roots. A near complete facetectomy was necessary resulting in further mechanical instability. The ligamentum flavum appeared hypertrophic, resulting on mass effect on the dorsal surface of the neural structures. The superior free border of the ligamentum flavum was elevated with a ligament dissector and the ligamentum flavum was removed with a 3 and 4 mm Kerrison forceps. The ligament was very adherent to the dural sac and during the dissection, ans extreme care was taken during the dissection. The exiting nerve roots were identified, and a wide foraminotomy was performed with a Kerrison in their trajectory towards the neural foramenat both levels. Epidural veins located laterally to the dural sac were coagulated with the bipolar cautery, and then incised using microscissors. Gentle medial retraction of the dural sac allowed me to expose the disc space for the discectomy. Upon completion of the discectomy, an excellent decompression of the neural structures was achieved. INTERBODY ARTHRODHESIS In order to correct the narrowing of the disk space and maintain distraction of the space, and to achieve a solid interbody fusion, it was necessary the insertion of an interbody device into the disk space. Otherwise, the disk space would collapse, compromising the result of the surgical procedure. At this point of the procedure, the annulus fibrosus of the disk was carefully coagulated with a bipolar cautery and incised using an 11 bladed knife. Then, a microdiscectomy was carried out in a standard fashion using a combination of straight and up-biting pituitary forceps. A reverse angle curette was applied underneath the posterior longitudinal ligament, and used to push the disk fragments into the disk space, so they can be safely removed with a pituitary forceps. Once the discectomy was completed, it was necessary to decorticate the endplates, in order to eliminate the cartilaginous endplate and to expose healthy bone appropriate to perform the interbody fusion. The endplates at L3-4 , L4-5, and L5-S1 were then thoroughly decorticated using increasing size bone milo and ring curets, eliminating the cartilaginous fragments from both, the superior and inferior endplates. A disk space distractor was applied to the pedicle screws and gentle distraction was applied. This maneuver was assisted by the use of a disk distractor. Increased motility was noted at the disk, which was consistent with instability due to facet arthropathy. Once a thorough preparation of the disk space was achieved, the disk space was irrigated with antibiotic solution, and the interbody fusion was performed by carefully impacting PPEK cages filled with autologous iliac crest bone graft. The use of several shoe impactors with different angulation, allowed me for an excellent, proper position of the interbody cage. A solid position of the cage with good purchase was achieved. The position of the cages were assessed anatomically with a probe and radiologically with the C-arm. POSTEROLATERAL FUSION The posterolateral fusion is a critical component to the procedure, to prevent future fatigue and failure of the instrumental fixation. Initially, the transverse processes of the vertebral bodies, lateral surface of the facets and the lateral gutters of the spine were carefully cleaned, eliminating all soft tissue and muscle attachments. The area was then irrigated with a large amount of antibiotic solution. Subsequently, the transverse processes, lateral surface of the facets, and lateral gutters of the spine were thoroughly decorticated using the TPS drill with a 5mm cutting catrina, exposing cancellous bone, in preparation for the posterolateral fusion. The incision was again irrigated with antibiotic solution. Then, the posterolateral fusion was then performed by carefully packing the lateral gutters of the spine at L3-4, L4-5, and L5-S1 with autologous bone combined with demineralized bone matrix. I packed as much bone as possible. COMPLETION OF THE INSTRUMENTATION AND CLOSURE The rods were brought to the field, applied to all the screws, and the screw caps were sequentially applied. Compression was performed between the pedicle screws, and final tightening of the screws was completed using a torque wrench. The incision was again thoroughly irrigated with several liters of antibiotic solution, and hemostasis secured with the bipolar cautery.A Valsalva Maneuver performed by the anesthesiologist failed to show any evidence of cerebrospinal fluid leak or bleeding. A 10 mm Hieu-Capps drain was left in the epidural space and externalized through a separate stab incision. The incision was then closed in planes. 0 Vicryl was used in an interrupted fashion to close the thoracolumbar fascia and the superficial fascia. The subcutaneous tissue was then approximated using 3-0 Vicryl in an interrupted fashion. Special care was taken to avoid space. The skin was then closed with 4-0 Vicryl in a running, subcuticular fashion. Dermabond was applied to the skin. Each plane of closure was irrigated with antibiotic solution. At the end of the procedure the sponge, needle and instrument counts were all correct. Estimated blood loss was 300 cc or less. The patient underwent autologous blood transfusion using the cell saver, approx 736cc. The entire procedure was performed using continuous electrophysiological monitoring of the somatosensorial evoked potentials and EMG. The patient received prophylactic antibiotics. The patient was then extubated and transferred to the recovery room in stable condition.
[2017-09-14] MEDS: Sertraline 50 MG Tablet PO SCH (20:10)
[2017-09-14] MEDS: Melatonin 5 MG Tablet PO PRN (20:10)
--- NOTE | 2017-09-14 23:55 | P.PNNS ---
Physical Exam Vital signs: Vital Signs 09/14/17 00:00 09/14/17 04:00 09/14/17 08:00 Temperature 98.6 F 98 F 98.0 F Pulse Rate 80 72 68 Respiratory Rate 24 19 23 Blood Pressure 134/61 122/59 L 129/59 L Pulse Oximetry 93 L 94 L 94 L 09/14/17 12:00 09/14/17 16:00 09/14/17 20:00 Temperature 98.4 F 98.5 F 98.2 F Pulse Rate 78 74 74 Respiratory Rate 25 H 20 24 Blood Pressure 133/62 136/63 130/60 Pulse Oximetry 98 100 95 Intake & Output 09/14/17 09/14/17 09/15/17 06:59 18:59 06:59 Intake Total 1220 / 1220 2440 / 2440 Output Total 1780 / 1780 915 / 915 Balance -560 / -560 1525 / 1525 Weight 96.7 kg Intake: IV 1100 / 1100 2200 / 2200 NS Inj 1,000 ML @ 100 mls/hr IV 1000 / 1000 1999 / 1999 .CONT .Q10H JADA Rx#:[id number] Ofirmev Inj 1,000 mg In 100 ml 100 / 100 @ 400 mls/hr IV.SIG STAT ONE Rx #:[id number] KCl 20 mEq Premix Inj 20 meq In 200 / 200 100 ml @ 50 mls/hr IV.SIG Q2H PRN Rx#:[id number] Oral 120 / 120 240 / 240 Output: Urine 900 / 900 Estimated Blood Loss 400 / 400 Urine Amount (Catheter) 1350 / 1350 Indwelling Urethral Catheter 1350 / 1350 Wound Drainage Back Other: Date of Last Bowel Movement 09/11/17 09/11/17 09/11/17 - Urinary Catheter Management Indwelling Urethral Catheter Cath placed during this visit: yes Reason for continuing: Hourly intake/output Insertion date: 09/11/17 Insertion time: 16:03 Assessment and Plan - Plan dc opiods due to confusion IV Tylenol prn pain, tramadol for breakthrough pain PT, mobilize with TLSO case mgt dc planning to rehab tomorrow appreciate critical care management cont IS every hour Dr. Ortega dw bedside
[2017-09-15] MEDS: Potassium Chlor 20 mEq Premix 20 MEQ/100 ML PIGGYBACK IV.SIG PRN ×8 (00:47→21:49)
[2017-09-15] MEDS: Sod Chloride 0.9% Inj 1,000 ML IV.CONT SCH ×3 (00:48→09:56)
[2017-09-15 05:41] LABS: Calcium 8.3 mg/dL (8.5-10.1)
--- NOTE | 2017-09-15 09:38 | P.PN ---
Subjective Interval history: F/u hypovolemic shock s/p back surgery. Patient has no complaints oral intake suboptimal discussed with nursing to continue IV fluids until intake is over 50% . No episodes of confusion today Physical Exam Vital signs: Vital Signs 09/14/17 12:00 09/14/17 16:00 09/14/17 20:00 Temperature 98.4 F 98.5 F 98.2 F Pulse Rate 78 74 74 Respiratory Rate 25 H 20 24 Blood Pressure 133/62 136/63 130/60 Pulse Oximetry 98 100 95 09/15/17 00:00 09/15/17 04:00 Temperature 98.1 F 97.1 F L Pulse Rate 66 70 Respiratory Rate 20 20 Blood Pressure 130/60 138/66 Pulse Oximetry 96 95 Intake & Output 09/14/17 09/15/17 09/15/17 18:59 06:59 18:59 Intake Total 2440 / 2440 2520 / 2520 Output Total 915 / 915 1715 / 1715 Balance 1525 / 1525 805 / 805 Weight 98.8 kg Intake: IV 2200 / 2200 2400 / 2400 NS Inj 1,000 ML @ 100 mls/hr IV 1999 / 1999 .CONT .Q10H JAAD Rx#:[id number] KCl 20 mEq Premix Inj 20 meq In 200 / 200 400 / 400 100 ml @ 50 mls/hr IV.SIG Q2H PRN Rx#:[id number] Oral 240 / 240 120 / 120 Output: Urine 900 / 900 900 / 900 Urine Amount (Catheter) 800 / 800 Indwelling Urethral Catheter 800 / 800 Wound Drainage Back Other: Date of Last Bowel Movement 09/11/17 09/11/17 Narrative: gen: elderly male, lying in bed, alert, conversant. neck: no jvd. trachea midline. Airway widely patent, no obstructive noises chest: equal chest rise. nc o2. Lungs clear, no adventitious sounds cv: normal rate, regular rhythm. No JVD. abd: soft, nontender, nondistended, no guarding. Bowel sounds active. back: midline lumbar incision c/d/i. neuro: Awake and oriented. moves all extremities. follows commands. no focal deficits. not confused this morning. - Urinary Catheter Management Indwelling Urethral Catheter Cath placed during this visit: yes Reason for continuing: Hourly intake/output Insertion date: 09/11/17 Insertion time: 16:03 Results - Labs CBC & Chem 7: 09/12/17 04:05 09/15/17 11:00 Laboratory Results - last 24 hr 09/14/17 09/15/17 23:17 04:54 Sodium 145 Potassium 2.9 L* 3.0 L Chloride 109 H Carbon Dioxide 23.0 Anion Gap 13 BUN 19 H Creatinine 0.96 Estimated GFR 77 L Random Glucose 109 H Calcium 8.3 L - Procedures L3-4, L4-5, L5-S1 laminectomy, interbody arthrodhesis using PEEK cage and autologous bone graft, L3-4, L4-5, L5-S1 segmental instrumental fixation using transpedicular screws and rods, L3-4, L4-5, L5-S1 posterolateral fusion using autologous bone graft and rods. Microsurgical dissection Assessment and Plan - Plan 71yM POD 2, s/p spine surgery. Active Problems: Hypovolemic Shock -resolved status post phenylephrine drip. Dc IVF. History of hypertension continue to hold BP medications anemia secondary to acute blood loss. Monitor repeat CBC in the morning severe metabolic acidosis -resolved Hypocalcemia. Resolved Hypokalemia. Replace per protocol. Check magnesium Acute kidney injury -improved Back surgery. Continue postoperative care with wound care, physical therapy, incentive spirometry and pain management with tramadol. DVT prophylaxis with SCD and early ambulation. Pharmacological prophylaxis per neurosurgery Discharge Planning: Home health care versus rehab
[2017-09-15] MEDS: Allopurinol 300 MG Tablet PO SCH (09:47)
[2017-09-15] MEDS: Famotidine 20 MG Tablet PO SCH ×2 (09:47→20:30)
[2017-09-15] MEDS: Senna/Docusate Sodium 8.6/50 MG Tablet PO SCH ×2 (09:47→20:30)
[2017-09-15 12:16] LABS: Potassium 3.1 meq/L (3.5-5.1)
[2017-09-15 12:45] LABS: Magnesium 1.6 mg/dL (1.5-2.5)
--- NOTE | 2017-09-15 14:25 | P.PNNS ---
Subjective Interval history: The patient is awake and alert when seen. He does endorse some low back pain and describes it as a burning. He denies any lower extremity pain, numbness or tingling. He is oriented to person, place and time but does have some confusion as to what has happened with him exactly. He is moving all extremities spontaneously and purposefully. He has no evident sensorimotor deficits upon evaluation. <Chris Barnes E - Last Filed: 09/15/17 14:31> Physical Exam Vital signs: Vital Signs 09/14/17 16:00 09/14/17 20:00 09/15/17 00:00 Temperature 98.5 F 98.2 F 98.1 F Pulse Rate 74 74 66 Respiratory Rate 20 24 20 Blood Pressure 136/63 130/60 130/60 Pulse Oximetry 100 95 96 09/15/17 04:00 Temperature 97.1 F L Pulse Rate 70 Respiratory Rate 20 Blood Pressure 138/66 Pulse Oximetry 95 Intake & Output 09/14/17 09/15/17 09/15/17 18:59 06:59 18:59 Intake Total 2440 / 2440 2520 / 2520 1000 / 1000 Output Total 915 / 915 1715 / 1715 Balance 1525 / 1525 805 / 805 1000 / 1000 Weight 98.8 kg Intake: IV 2200 / 2200 2400 / 2400 1000 / 1000 NS Inj 1,000 ML @ 100 mls/hr IV 2000 / 2000 2000 / 2000 1000 / 1000 .CONT .Q10H JADA Rx#:[id number] KCl 20 mEq Premix Inj 20 meq In 200 / 200 400 / 400 100 ml @ 50 mls/hr IV.SIG Q2H PRN Rx#:[id number] Oral 240 / 240 120 / 120 Output: Urine 900 / 900 900 / 900 Urine Amount (Catheter) 800 / 800 Indwelling Urethral Catheter 800 / 800 Wound Drainage Back Other: Date of Last Bowel Movement 09/11/17 09/11/17 Narrative: GENERAL: Awake & alert in bed. Affect essentially normal. Readily interacts. No apparent distress. HEENT: Normocephalic, atraumatic. MUSCULOSKELETAL: BECKHAM spontaneously & purposefully. Lower extremities NTTP. Lumbar spine mildly tender at surgical site, incision dry & intact. NEUROLOGICAL: AAOx3. Speech clear, slightly halting, some confusion as to what has happened to him. Follows simple commands w/o difficulty. Sensation intact to light touch to the lower extremities. Motor strength to the lower extremities appears essentially normal. - Urinary Catheter Management Indwelling Urethral Catheter Cath placed during this visit: yes Reason for continuing: Hourly intake/output Insertion date: 09/11/17 Insertion time: 16:03 <Chris Barnes - Last Filed: 09/15/17 14:31> - Urinary Catheter Management Indwelling Urethral Catheter Cath placed during this visit: no <Sudhir Cervantes - Last Filed: 11/04/17 22:02> Assessment and Plan - Plan Impression: Lumbar degenerative disc disease S/p L3-S1 PLIF Patient is doing well. Still with some confusion. No evident sensorimotor deficits to the LEs. Past 24 hrs: Afebrile. Reviewed labs for today. Sodium 145. Hypokalemia minimally improved from earlier this morning. eGFR 77. Plan: Critical care management per Laboratory Development Technician. No opiods due to confusion. IV Tylenol prn pain, tramadol for breakthrough pain PT, mobilize with TLSO case mgt dc planning to rehab tomorrow cont IS every hour <Chris Barnes - Last Filed: 09/15/17 14:31> - Attending Attestation The exam, history, and the medical decision-making described in the above note were completed with the assistance of the mid-level provider. I reviewed and agree with the findings presented. I attest that I had a [id number] encounter with the patient on the same day, and personally performed and documented my assessment and findings in the medical record. <Sudhir Cervantes - Last Filed: 11/04/17 22:02>
[2017-09-15] MEDS: Sertraline 50 MG Tablet PO SCH (20:30)
[2017-09-15] MEDS: Melatonin 5 MG Tablet PO PRN (20:30)
[2017-09-16 07:00] LABS: Baso % (Auto) 0.6 % (0.0-2.0); Eos # (Auto) 0.2 th/mm3 (0.0-0.4); Eos % (Auto) 2.6 % (0.0-4.0); Hematocrit 23.9 % (39.0-51.0); Hemoglobin 7.9 gm/dL (13.0-17.0); Lymph # (Auto) 1.1 th/mm3 (1.0-4.8); Lymph % (Auto) 13.1 % (9.0-44.0); Mean Corpuscular HGB Conc 33.1 % (32.0-36.0); Mean Corpuscular Volume 99.6 fL (80.0-100.0); Mean Platelet Volume 8.2 fL (7.0-11.0); Mono # (Auto) 0.8 th/mm3 (0.0-0.9); Mono % (Auto) 10.2 % (0.0-8.0); Neut # (Auto) 5.9 th/mm3 (1.8-7.7); Neut % (Auto) 73.5 % (16.0-70.0); Platelet Count 187 th/mm3 (150-450); Red Cell Distribution Width 14.8 % (11.6-17.2)
[2017-09-16 07:21] LABS: Calcium 7.8 mg/dL (8.5-10.1); Carbon Dioxide 23.2 meq/L (21.0-32.0); Magnesium 1.6 mg/dL (1.5-2.5); Potassium 3.6 meq/L (3.5-5.1)
[2017-09-16] MEDS: Allopurinol 300 MG Tablet PO SCH (08:49)
[2017-09-16] MEDS: Senna/Docusate Sodium 8.6/50 MG Tablet PO SCH (08:49)
[2017-09-16] MEDS: Famotidine 20 MG Tablet PO SCH (08:49)
--- NOTE | 2017-09-16 10:34 | P.PNNS ---
Subjective Interval history: 09/16: still painful when moving, slowly improving. Physical Exam Vital signs: Vital Signs 09/15/17 12:00 09/15/17 16:00 09/15/17 20:00 Temperature 97.7 F 98.5 F 98.1 F Pulse Rate 64 66 63 Respiratory Rate 16 16 18 Blood Pressure 126/61 159/70 H Pulse Oximetry 98 95 09/16/17 00:00 09/16/17 04:00 Temperature 97.8 F 98.2 F Pulse Rate 61 64 Respiratory Rate 18 17 Blood Pressure 117/56 L 137/65 Pulse Oximetry 95 94 L Intake & Output 09/15/17 09/16/17 09/16/17 18:59 06:59 18:59 Intake Total 1400 / 1400 1500 / 1500 1100 / 1100 Output Total 800 / 800 1940 / 1940 Balance 600 / 600 -440 / -440 1100 / 1100 Weight 100.1 kg Intake: IV 1100 / 1100 1400 / 1400 1100 / 1100 NS + KCl 20 mEq Inj 1,000 ML @ 1000 / 1000 1000 / 1000 100 mls/hr IV.CONT .Q10H JADA Rx #:[id number] NS Inj 1,000 ML @ 100 mls/hr IV 1000 / 1000 .CONT .Q10H JADA Rx#:[id number] Ofirmev Inj 1,000 mg In 100 ml 100 / 100 @ 400 mls/hr IV.SIG Q6H PRN Rx# :[id number] KCl 20 mEq Premix Inj 20 meq In 100 / 100 400 / 400 100 ml @ 50 mls/hr IV.SIG Q2H PRN Rx#:[id number] Oral 300 / 300 100 / 100 Output: Urine 725 / 725 Estimated Blood Loss 400 / 400 Urine Amount (Catheter) 800 / 800 800 / 800 Indwelling Urethral Catheter 800 / 800 800 / 800 Wound Drainage Back Other: Date of Last Bowel Movement 09/11/17 09/16/17 # Bowel Movements 1 2 Narrative: Awake, comfortable in bed moves all four extremities speech fluent pupils equal - Urinary Catheter Management Indwelling Urethral Catheter Cath placed during this visit: yes Reason for continuing: Hourly intake/output Insertion date: 09/11/17 Insertion time: 16:03 Assessment and Plan - Plan Impression: Lumbar degenerative disc disease S/p L3-S1 PLIF Plan: medicine following, appreciate assistants No opiods due to confusion. IV Tylenol prn pain, tramadol for breakthrough pain PT, mobilize with TLSO case mgt dc planning, dc when bed available cont IS every hour
--- NOTE | 2017-09-17 13:32 | P.DS ---
Date of admission: 09/11/17 12:48 Primary care physician: Dayton Alamo MD Brief History from admission: Mr garzon is a 71 year-old male who presented with intractable mechanical back pain and urban evidence of lower extremity poliradiculopathy, with L4, L5 and S1 chronic radiculopathy. He failed maximum nonsurgical management including multiple modalities of conservative treatment as well as pain management interventions by an interventional pain specialist. A surgical decompression and arthrodesis were indicated as a last resort. DS: Summary Hospital Course: Mr. Garzon underwent a L3-S1 PLIF for lumbar degenerative disc disease. He was admitted to intensive care unit due to hypotension. He required transfusion. He improved and was cleared for discharge. - Time Spent with Patient Total time spent providing and/or coordinating discharge services: Exam Vital signs: Intake & Output 09/16/17 09/17/17 09/17/17 18:59 06:59 18:59 Intake Total 1100 / 1100 Balance 1100 / 1100 Intake: IV 1100 / 1100 NS + KCl 20 mEq Inj 1,000 ML @ 1000 / 1000 100 mls/hr IV.CONT .Q10H JADA Rx #:[id number] Ofirmev Inj 1,000 mg In 100 ml 100 / 100 @ 400 mls/hr IV.SIG Q6H PRN Rx# :[id number] Other: Date of Last Bowel Movement 09/16/17 Results Procedures completed during hospitalization: L3-4, L4-5, L5-S1 laminectomy, interbody arthrodhesis using PEEK cage and autologous bone graft, L3-4, L4-5, L5-S1 segmental instrumental fixation using transpedicular screws and rods, L3-4, L4-5, L5-S1 posterolateral fusion using autologous bone graft and rods. Microsurgical dissection - Impressions ITS Impressions Lumbar Spine X-Ray 09/12/17 00:00 CONCLUSION: Good placement of surgical hardware from the L3-S1 levels. Discharge Plan - Discharge Disposition Patient Disposition: 60 [facility] Inpatient - Discharge Condition Condition: Stable - Discharge Order Discharge Orders: Discharge Order (Routine); Ordered 09/16/17 Ordered By: Arlette Raza - Physicians Team Primary Care Provider: Dayton Alamo Attending Provider: Abilio Ortega Other Providers: Ray Bsihop MD ; Efren Lopez MD - Rxs /Orders / Referrals /Forms Prescriptions: Continue allopurinol 300 mg Tablet 300 mg PO DAILY aspirin [Aspir-81] 81 mg Tablet,Delayed Release (Dr/Ec) 81 mg PO DAILY enalapril maleate [Vasotec] 10 mg Tablet 10 mg PO DAILY ibuprofen 800 mg Tablet 800 mg PO TID PRN (Reason: Pain) multivitamin Tablet 1 tab PO DAILY ranitidine HCl [Zantac] 150 mg Tablet 150 mg PO DAILY rosuvastatin [Crestor] 10 mg Tablet 10 mg PO DAILY triamterene-hydrochlorothiazid 75-50 mg Tablet 1 tab PO DAILY No Action sertraline [Zoloft] 50 mg tablet 50 mg PO HS tramadol 50 mg Tablet 50 mg PO Q4HR PRN (Reason: Pain ) Referrals: Daytno Alamo MD [Primary Care Provider] - See Instructions (Follow up with Dr. Ortega in 1 week after Discharge from rehab follow up with PCP as well)
== END 2017-09-16 13:50 ==
LOC: HSDI 12:48 → N03 09-12 01:59 → HCIS 09-16 12:10
PROVIDERS: ADMIT Neurological Surgery; ATTEND Neurological Surgery